=== PATIENT | male | born 1970 | race Caucasian/White ===

== ENCOUNTER 2019-04-30 18:41 | Emergency (ER) | payer BC ==
[~2019-04-30] VITALS: Ht 188 cm; Wt 82.1 kg
[2019-04-30 18:53] VITALS: BP 162/88
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
[2019-04-30] MEDS ORDERED: IBU800 MG PO (19:49)
[2019-04-30] MEDS ORDERED: ROBAXIN-500MG ORAL (19:49)
--- NOTE | 2019-04-30 19:52 | NUR ---
ED Nurse Note: Patient cleared for discharge by ER provider, no s/s of acute distress. Patient is A&Ox4, with steady gait. Patient departed with all belongings to drive home.
[2019-04-30 19:59] VITALS: BP 162/88
--- NOTE | 2019-05-01 11:20 | Diagnostic Imaging Report ---
Indication: Neck Pain Findings: 3 views of the cervical spine were obtained. Mild degenerative changes of the cervical spine are demonstrated. This is characterized by vertebral endplate osteophyte formation and narrowing of intervertebral discs. The bones are osteopenic. There is no acute fracture identified. Alignment is normal. The open-mouth odontoid view shows an intact dens and good alignment of the lateral masses with respect to the body of C2. There is no soft tissue swelling. Impression: Mild spondylosis
== END 2019-04-30 19:59 | disposition home or self-care (01) ==
LOC: EMR 19:45
DX: S16.1XXA Strain of muscle, fascia and tendon at neck level, initial encounter (principal); V43.52XA Car driver injured in collision with other type car in traffic accident, initial encounter; Y92.410 Unspecified street and highway as the place of occurrence of the external cause
CPT/HCPCS: 72052; 99283